=== PATIENT | female | born 1975 ===

== ENCOUNTER 2016-08-08 09:44 | Day surgery (SDC) | payer BC ==
[2016-07-22 09:02] VITALS: BMI 33.0
[2016-08-08] MEDS ORDERED: Propofol 10 mg/ml Inj (20 ML) ONE (10:55)
[2016-08-08] MEDS ORDERED: Lidocaine 1% Inj (20ml) ONE (11:25)
[2016-08-10 15:29] VITALS: O2SAT 98
[2016-08-10 15:33] VITALS: BP 111/68; PULSE 65; RESP 16; TEMP 97.4
== END 2016-08-08 12:42 | disposition home or self-care (01) ==
LOC: ENDO 09:44
PROVIDERS: ATTEND Internal Medicine
DX: K29.70 Gastritis, unspecified, without bleeding (principal); M32.9 Systemic lupus erythematosus, unspecified; I10 Essential (primary) hypertension; K57.90 Diverticulosis of intestine, part unspecified, without perforation or abscess without bleeding; M79.7 Fibromyalgia; R10.9 Unspecified abdominal pain; K59.00 Constipation, unspecified; Z86.19 Personal history of other infectious and parasitic diseases
CPT/HCPCS: 43235; J2704; J3010; J7040

== ENCOUNTER 2017-06-10 17:12 | Emergency (ER) | payer BC ==
[2017-06-10 17:21] VITALS: BMI 32.4
--- NOTE | 2017-06-10 17:46 | ED PDOC ---
Arrival/HPI - General Chief Complaint: Flu-like Symptoms Time Seen by Provider: 06/10/17 17:46 Historian: Patient - History of Present Illness Narrative History of Present Illness (Text): 06/10/17 17:46 This 41 yo female with pmh htn, asthma, migraines, presents to this Emergency department complaining of sore throat, nasal congestion, chill, bodyache x 2 weeks. patient stated symptoms has worsen since last night. Patient denies sob , cp, wheezing, abdominal pain, dizziness, urinary symptoms, or abnormal gait. PERC negative for PE Time/Duration: Other (see hpi) Context: Home Past Medical History - Provider Review Nursing Documentation Reviewed: Yes - Infectious Disease Hx of Infectious Diseases: None - Cardiac Hx Hypertension: Yes Hx Pacemaker: No - Pulmonary Hx Respiratory Disorders: Yes Hx Asthma: Yes Hx Pneumonia: Yes (2010) - Neurological Hx Paralysis: No - HEENT Hx HEENT Disorder: Yes () - Renal Hx Renal Disorder: No - Endocrine/Metabolic Hx Systemic Lupus Erythematosus: Yes (IN REMISSION) - Hematological/Oncological Hx Blood Transfusions: No Hx Blood Transfusion Reaction: No - Integumentary Hx Dermatological Disorder: No - Musculoskeletal/Rheumatological Hx Musculoskeletal Disorders: Yes (FIBROMYALGIA) - Gastrointestinal Hx Gastrointestinal Disorders: Yes Hx Diverticulitis: Yes Hx Gastroesophageal Reflux: Yes - Genitourinary/Gynecological Hx Reproductive Disorders: Yes (PELVIC PAIN/FIBROIDS HPV) Hx Urinary Tract Infection: Yes (LONG AGO) - Psychiatric Hx Emotional Abuse: No Hx Physical Abuse: No Hx Substance Use: No - Surgical History Hx Hysterectomy: Yes (2015) - Anesthesia Hx Anesthesia Reactions: Yes (NAUSEA / VOMITING ) Hx Malignant Hyperthermia: No - Suicidal Assessment Feels Threatened In Home Enviroment: No Family/Social History - Physician Review Nursing Documentation Reviewed: Yes Family/Social History: Other (noncontributory) Smoking Status: Never Smoked Hx Alcohol Use: No Hx Substance Use: No Allergies/Home Meds Allergies/Adverse Reactions: Allergies No Known Allergies Allergy (Verified 07/17/15 08:47) Home Medications: Home Meds Medication Instructions Recorded Confirmed Montelukast [Singulair] 1 tab PO HS 07/17/15 06/10/17 Valsartan/Hydrochlorothiazide 1 tab PO QPM 07/17/15 06/10/17 [Valsartan-Hctz 80-12.5 mg Tab] Review of Systems - Review of Systems Constitutional: Normal. absent: Fatigue, Weight Change, Fevers Eyes: Normal ENT: Sore Throat Respiratory: Cough. absent: SOB, Sputum, Wheezing Cardiovascular: Normal. absent: Chest Pain, Palpitations Gastrointestinal: Normal. absent: Abdominal Pain, Nausea, Vomiting Genitourinary Female: Normal. absent: Dysuria, Frequency, Hematuria Musculoskeletal: Normal, Myalgias Skin: Normal. absent: Rash Neurological: Normal Endocrine: Normal Hemo/Lymphatic: Normal Psychiatric: Normal Physical Exam Vital Signs Temp Pulse Resp BP Pulse Ox 06/10/17 17:13 98.5 F 97 H 20 117/76 97 Temperature: Afebrile Blood Pressure: Normal Pulse: Regular Respiratory Rate: Normal Appearance: Positive for: Well-Appearing, Non-Toxic, Comfortable Pain Distress: None Mental Status: Positive for: Alert and Oriented X 3 - Systems Exam Head: Present: Atraumatic, Normocephalic Pupils: Present: PERRL Extroacular Muscles: Present: EOMI Conjunctiva: Present: Normal Mouth: Present: Moist Mucous Membranes Neck: Present: Normal Range of Motion Respiratory/Chest: Present: Clear to Auscultation, Good Air Exchange. No: Respiratory Distress, Accessory Muscle Use, Wheezes, Retracting, Rhonchi, Tachypneic Cardiovascular: Present: Regular Rate and Rhythm, Normal S1, S2. No: Murmurs Abdomen: Present: Normal Bowel Sounds. No: Tenderness, Distention, Peritoneal Signs Back: Present: Normal Inspection Upper Extremity: Present: Normal Inspection. No: Cyanosis, Edema Lower Extremity: Present: Normal Inspection. No: Edema Neurological: Present: GCS=15, CN II-XII Intact, Speech Normal, Motor Func Grossly Intact, Normal Sensory Function, Normal Cerebellar Funct, Gait Normal Skin: Present: Warm, Dry, Normal Color. No: Rashes Psychiatric: Present: Alert, Oriented x 3, Normal Insight, Normal Concentration Medical Decision Making ED Course and Treatment: 06/10/17 19:51 Re-evaluation. Patient feels better. Discussed results and plan with patient who expresses understanding. All questions answered and there is agreement with the plan to discharge home with instructions. Patient stable for discharge. Return if symptoms persist or worsen Re-evaluation Time: 19:52 Reassessment Condition: Re-examined, Improved - Lab Interpretations Lab Results: Lab Results 06/10/17 18:08: Urine Color Yellow, Urine Appearance Clear, Urine pH 6.0, Ur Specific [place] 1.010, Urine Protein Negative, Urine Glucose (UA) Negative, Urine Ketones Negative, Urine Blood Trace-intact H, Urine Nitrate Negative, Urine Bilirubin Negative, Urine Urobilinogen 0.2, Ur Leukocyte Esterase Negative , Urine RBC 2 - 5, Urine WBC 0 - 2, Ur Epithelial Cells 6 - 8, Amorphous Sediment Small, Urine Bacteria Many, Urine Other Uyeast 06/10/17 18:08: Influenza Typ A,B (EIA) Negative for flu a/b I have reviewed the lab results: Yes (Influenza was negative) - RAD Interpretation Narrative RAD Interpretations (Text): 06/10/17 19:52 Chest x-rays: NAD Radiology Orders: 06/10/17 18:00 CHEST TWO VIEWS (PA/LAT) [RAD] Stat - Medication Orders Current Medication Orders: Discontinued Medications Acetaminophen (Tylenol 325mg Tab) 975 mg PO STAT STA Stop: 06/10/17 18:02 Last Admin: 06/10/17 18:22 Dose: 975 mg MAR Pain/Vitals Document 06/10/17 18:22 GMI (Rec: 06/10/17 18:23 GMI [id number] Pain Reassessment Is This A Pain ReAssessment? Yes Sleep Is patient sleeping during reassessment? No Presence of Pain Presence of Pain Yes Location Pain Behavior Moaning Facial Grimacing Albuterol/Ipratropium (Duoneb 3 Mg/0.5 Mg (3 Ml) Ud) 3 ml IH STAT STA Stop: 06/10/17 18:02 Last Admin: 06/10/17 18:23 Dose: 3 ml Promethazine HCl/Codeine (Phenergan/Codeine Oral Syrup) 5 ml PO STAT STA Stop: 06/10/17 18:02 Last Admin: 06/10/17 18:23 Dose: 5 ml Disposition/Present on Arrival - Present on Arrival Any Indicators Present on Arrival: No History of DVT/PE: No History of Uncontrolled Diabetes: No Urinary Catheter: No History of Decub. Ulcer: No History Surgical Site Infection Following: None - Disposition Have Diagnosis and Disposition been Completed?: Yes Diagnosis: Upper respiratory infection Disposition: HOME/ ROUTINE Disposition Time: 19:54 Patient Plan: Discharge Patient Problems: Current Active Problems Problem Status Onset Upper respiratory infection Acute Condition: GOOD Discharge Instructions (ExitCare): Upper Respiratory Infection (ED) Additional Instructions: Call private doctor for follow up visit in 1-2 days. Take medication as instructed. Return to emergency if symptoms worsen. Prescriptions: Albuterol HFA [Ventolin HFA 90 mcg/actuation (8 g)] 2 puff IH [id number] PRN #120 puff PRN Reason: Wheezing Promethazine/Codeine [Codeine/Promethazine 10 MG/5 Ml-6.25 MG/5 Ml] 5 ml PO Q4H PRN #120 ml PRN Reason: Cough And Congestion Referrals: Greyson Yang MD [Family Provider] - Follow up with primary Forms: [facility] (Indonesian), WORK NOTE
[2017-06-10] MEDS ORDERED: Albuterol-Ipratrop 3 mg / 0.5 (3 ml) UD IH STA (18:01)
[2017-06-10] MEDS ORDERED: Promethazine/Cod 6.25mg-10mg/5ml Syr UD PO STA (18:01)
[2017-06-10 18:41] LABS: URINE BILIRUBIN NEGATIVE (NEGATIVE); URINE BLOOD TRACE-INTACT (NEGATIVE); URINE GLUCOSE (UA) NEGATIVE (NEGATIVE); URINE LEUKOCYTE ESTERASE NEGATIVE Leu/uL (NEGATIVE); URINE NITRATE NEGATIVE (NEGATIVE); URINE PROTEIN NEGATIVE mg/dL (<30 mg/dL); URINE UROBILINOGEN 0.2 E.U./dL (<1 E.U./dL)
[2017-06-10 18:51] LABS: URINE APPEARANCE CLEAR (CLEAR); URINE COLOR YELLOW (YELLOW)
[2017-06-10 19:05] LABS: URINE AMORPHOUS SEDIMENT SMALL; URINE BACTERIA MANY (NEG); URINE WBC 0 - 2 /hpf (0-6)
[2017-06-10 19:56] VITALS: BP 120/72; PULSE 75; RESP 16; TEMP 97.6; O2SAT 100
== END 2017-06-10 20:40 | disposition home or self-care (01) ==
LOC: ED 17:12
DX: J06.9 Acute upper respiratory infection, unspecified (principal)

== ENCOUNTER 2018-03-01 11:44 | Inpatient (IN) | payer BC ==
[2018-03-01 11:48] VITALS: BMI 32.8
[2018-03-01] MEDS ORDERED: Sodium Chloride 0.9% 1,000 ML IV STA (12:05)
--- NOTE | 2018-03-01 12:06 | ED PDOC ---
Arrival/HPI - General Chief Complaint: Abdominal Pain Time Seen by Provider: 03/01/18 11:45 Historian: Patient - History of Present Illness Narrative History of Present Illness (Text): 03/01/18 12:06 42 year old female with a past medical history of lupus, asthma, fibromyalgia, HTN, Diverticulitis and a past surgical history of Hysterectomy (2015), who presents to the Emergency Department with suprapubic abdominal pain since Monday. Pt states she came to the Emergency room on Monday and was diagnosed with a Bladder Infection, discharged home with abx. Pt states she followed up wit her PMD on Monday who changed her medications. Pt reports worsening symptoms since Monday associated with subjective fever and 2 episodes of diarrhea, prompting her to present to the Emergency Department today for revaluation. 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 Patient denies any chills, nausea, vomiting, hematochezia, chest pain, shortness of breath, cough, headache, dizziness, neck pain, back pain, or any other complaints. PMD: Dr. Greyson Yang Time/Duration: < week Symptom Onset: Gradual Symptom Course: Worsening Quality: Aching Activities at Onset: Light Context: Home Past Medical History - Provider Review Nursing Documentation Reviewed: Yes - Infectious Disease Hx of Infectious Diseases: None - Cardiac Hx Hypertension: Yes Hx Pacemaker: No - Pulmonary Hx Respiratory Disorders: Yes Hx Asthma: Yes Hx Pneumonia: Yes (2010) - Neurological Hx Paralysis: No - HEENT Hx HEENT Disorder: Yes (GLASSES) - Renal Hx Renal Disorder: No - Endocrine/Metabolic Hx Systemic Lupus Erythematosus: Yes (IN REMISSION) - Hematological/Oncological Hx Blood Transfusions: No Hx Blood Transfusion Reaction: No - Integumentary Hx Dermatological Disorder: No - Musculoskeletal/Rheumatological Hx Musculoskeletal Disorders: Yes (FIBROMYALGIA) - Gastrointestinal Hx Gastrointestinal Disorders: Yes Hx Diverticulitis: Yes Hx Gastroesophageal Reflux: Yes - Genitourinary/Gynecological Hx Reproductive Disorders: Yes (PELVIC PAIN/FIBROIDS HPV) Hx Urinary Tract Infection: Yes (LONG AGO) - Psychiatric Hx Emotional Abuse: No Hx Physical Abuse: No Hx Substance Use: No - Surgical History Hx Hysterectomy: Yes (2015) - Anesthesia Hx Anesthesia Reactions: Yes (NAUSEA / VOMITING ) Hx Malignant Hyperthermia: No - Suicidal Assessment Feels Threatened In Home Enviroment: No Family/Social History - Physician Review Nursing Documentation Reviewed: Yes Family/Social History: Unknown Family HX Smoking Status: Never Smoked Hx Alcohol Use: No Hx Substance Use: No Allergies/Home Meds Allergies/Adverse Reactions: Allergies No Known Allergies Allergy (Verified 03/01/18 11:48) Home Medications: Home Meds Medication Instructions Recorded Confirmed Ciprofloxacin [Cipro] 500 mg PO BID 03/01/18 03/01/18 Metoprolol Succinate [Toprol Xl] 50 mg PO DAILY 03/01/18 03/01/18 RX: Dicyclomine [Bentyl] 10 mg PO QID 03/01/18 03/01/18 RX: Metronidazole 500 mg PO TID 03/01/18 03/01/18 RX: traMADol [Ultram] 50 mg PO Q6 03/01/18 03/01/18 Review of Systems - Physician Review All systems were reviewed & negative as marked: Yes - Review of Systems Constitutional: Fevers Respiratory: absent: SOB, Cough Cardiovascular: absent: Chest Pain Gastrointestinal: Abdominal Pain, Diarrhea. absent: Nausea, Vomiting, Hematochezia Musculoskeletal: absent: Back Pain, Neck Pain Neurological: absent: Headache, Dizziness Physical Exam Vital Signs Reviewed: Yes Vital Signs Temp Pulse Resp BP Pulse Ox 03/01/18 11:53 98.1 F 77 18 119/80 98 Temperature: Afebrile Blood Pressure: Normal Pulse: Regular Respiratory Rate: Normal Appearance: Positive for: Well-Appearing, Non-Toxic, Comfortable Pain Distress: None Mental Status: Positive for: Alert and Oriented X 3 - Systems Exam Head: Present: Atraumatic, Normocephalic Pupils: Present: PERRL Extroacular Muscles: Present: EOMI Conjunctiva: Present: Normal Neck: Present: Normal Range of Motion Respiratory/Chest: Present: Clear to Auscultation, Good Air Exchange. No: Respiratory Distress, Accessory Muscle Use Cardiovascular: Present: Regular Rate and Rhythm, Normal S1, S2. No: Murmurs Abdomen: Present: Tenderness (suprapubic tenderness). No: Distention, Peritoneal Signs, Rebound, Guarding Back: Present: Normal Inspection Upper Extremity: Present: Normal Inspection. No: Cyanosis, Edema Lower Extremity: Present: Normal Inspection. No: Edema Neurological: Present: GCS=15, CN II-XII Intact, Speech Normal Skin: Present: Warm, Dry, Normal Color. No: Rashes Psychiatric: Present: Alert, Oriented x 3, Normal Insight, Normal Concentration Medical Decision Making ED Course and Treatment: 03/01/18 12:27 Impression: 42 year old female who presents to the Ed with suprapubic abdominal pain, subjective fever, and diarrhea. Plan: -- labs -- IV fluids -- Tylenol -- Urinalysis -- Reassess and disposition Prior Visits: Notes and results from previous visits were reviewed. Progress Notes: 03/01/18 14:59 CT of abdomen and pelvis reviewed by radiologist, shows: FINDINGS: LOWER THORAX: Unremarkable. LIVER: Unremarkable. No gross lesion or ductal dilatation. GALLBLADDER AND BILE DUCTS: Unremarkable. PANCREAS: Unremarkable. No gross lesion or ductal dilatation. SPLEEN: Unremarkable. ADRENALS: Unremarkable. No mass. KIDNEYS AND URETERS: Unremarkable. No hydronephrosis. No solid mass. VASCULATURE: Unremarkable. No aortic aneurysm. No atherosclerotic calcification or mural plaque present. BOWEL: Unremarkable. No obstruction. No gross mural thickening. APPENDIX: Normal appendix. PERITONEUM: Unremarkable. No free fluid. No free air. LYMPH NODES: Unremarkable. No enlarged lymph nodes. BLADDER: Unremarkable. REPRODUCTIVE: Cystic pelvic mass left midline well-circumscribed measuring 4 x 4.3 x 4.4 cm. A clear plane separates the mass from the bladder. The mass displays contiguity with the sigmoid colon. BONES: OTHER FINDINGS: IMPRESSION: Cystic pelvic mass likely adnexal in origin. Alternatively this could be related to the sigmoid colon and represent drainable collection/abscess. Pelvic ultrasound may assist in delineating the origin. Despite the fact that there is a history of hysterectomy, no history of oophorectomy provided. 03/01/18 15:54 PMD, Dr. Penaloza, evaluated patient at bed side. Requests pt admission and OB and GI on consult. 03/01/18 15:57 Transvaginal US was reviewed by radiologist and shows: FINDINGS: UTERUS: Prior hysterectomy. RIGHT OVARY: Not visible. LEFT OVARY: No normal adnexal tissue is identified. Left adnexal mass 3.8 x 3.7 x 6.5 cm with solid and cystic components. There is rim enhancement. FREE FLUID: No significant free fluid noted. OTHER FINDINGS: None. IMPRESSION: Complex primarily solid mass in the left hemipelvis-left adnexa. This corresponds findings on recent CT scan. This does not appear to represent a complex cyst or abscess. The findings are nonspecific. Pelvic MRI advised for further evaluation 03/01/18 17:42 PMD, Dr. Penaloza, evaluated patient at bed side. Requests pt admission and OB and GI on consult. - RAD Interpretation Route Returner: Radiologist - Ignacia Statement The provider has reviewed the documentation as recorded by the Ignacia billings [facility] All medical record entries made by the Ojibtyler were at my direction and personally dictated by me. I have reviewed the chart and agree that the record accurately reflects my personal performance of the history, physical exam, medical decision making, and the department course for this patient. I have also personally directed, reviewed, and agree with the discharge instructions and disposition. Disposition/Present on Arrival - Present on Arrival Any Indicators Present on Arrival: No History of DVT/PE: No History of Uncontrolled Diabetes: No Urinary Catheter: No History of Decub. Ulcer: No History Surgical Site Infection Following: None - Disposition Have Diagnosis and Disposition been Completed?: Yes Diagnosis: Abdominal pain, Pelvic mass Disposition: HOSPITALIZED Disposition Time: 05:00 Condition: STABLE
[2018-03-01 12:33] LABS: BASO # 0.02 K/mm3 (0.0-2.0); BASO % 0.3 % (0.0-3.0); EOS # 0.1 (0.0-0.7); EOS % 1.7 % (1.5-5.0); GRAN # 5.1 (1.4-6.5); GRAN % 68.3 % (50.0-68.0); HEMOGLOBIN 12.9 g/dL (12.0-16.0); LYMPH # 1.7 (1.2-3.4); LYMPH % 22.3 % (22.0-35.0); MEAN CELL VOLUME 90.5 fl (80.0-105.0); MEAN CORPUSCULAR HGB CONC 33.2 g/dl (31.0-37.0); MONO # 0.6 (0.1-0.6); MONO % 7.4 % (1.0-6.0); RBC 4.3 10^6/uL (3.5-6.1); RED CELL DISTRIBUTION WIDTH 14.3 % (11.5-14.5); WHITE BLOOD COUNT 7.5 10^3/ul (4.5-11.0)
[2018-03-01 12:44] LABS: URINE BILIRUBIN NEGATIVE (NEGATIVE); URINE BLOOD TRACE-LYSED (NEGATIVE); URINE GLUCOSE (UA) NEGATIVE (NEGATIVE); URINE LEUKOCYTE ESTERASE NEGATIVE Leu/uL (NEGATIVE); URINE PROTEIN NEGATIVE mg/dL (<30 mg/dL); URINE UROBILINOGEN 0.2 E.U./dL (<1 E.U./dL)
[2018-03-01 12:46] LABS: HCG,QUALITATIVE URINE NEGATIVE (NEGATIVE); URINE APPEARANCE CLEAR (CLEAR); URINE COLOR YELLOW (YELLOW)
[2018-03-01 12:48] LABS: INR 1.03; PARTIAL THROMBOPLASTIN TIME 31.2 Seconds (25.1-36.5); PROTHROMBIN TIME 11.8 SECONDS (9.4-12.5)
[2018-03-01 12:54] LABS: URINE BACTERIA FEW (NEG); URINE WBC 0 - 2 /hpf (0-6)
[2018-03-01 13:30] LABS: ALB/GLOB RATIO 1.2 (1.1-1.8); ALBUMIN 4.1 g/dL (3.0-4.8); ALT/SGPT 23 U/L (7-56); AST/SGOT 17 U/L (14-36); BLOOD UREA NITROGEN 15 mg/dL (7-21); CALCIUM 8.7 mg/dL (8.4-10.5); GFR NON-AFRICAN AMERICAN > 60; LIPASE 90 U/L (23-300)
--- NOTE | 2018-03-01 14:32 | CT ---
Date of service: 03/01/2018 PROCEDURE: CT Abdomen and Pelvis with contrast HISTORY: Lower abdominal pain. Relevant surgical history: Prior hysterectomy COMPARISON: None. TECHNIQUE: Intravenous contrast dose: Radiation dose: Total exam DLP = inf_radiation_dlp mGy-cm. This CT exam was performed using one or more of the following dose reduction techniques: Automated exposure control, adjustment of the mA and/or kV according to patient size, and/or use of iterative reconstruction technique. FINDINGS: LOWER THORAX: Unremarkable. LIVER: Unremarkable. No gross lesion or ductal dilatation. GALLBLADDER AND BILE DUCTS: Unremarkable. PANCREAS: Unremarkable. No gross lesion or ductal dilatation. SPLEEN: Unremarkable. ADRENALS: Unremarkable. No mass. KIDNEYS AND URETERS: Unremarkable. No hydronephrosis. No solid mass. VASCULATURE: Unremarkable. No aortic aneurysm. No atherosclerotic calcification or mural plaque present. BOWEL: Unremarkable. No obstruction. No gross mural thickening. APPENDIX: Normal appendix. PERITONEUM: Unremarkable. No free fluid. No free air. LYMPH NODES: Unremarkable. No enlarged lymph nodes. BLADDER: Unremarkable. REPRODUCTIVE: Cystic pelvic mass left midline well-circumscribed measuring 4 x 4.3 x 4.4 cm. A clear plane separates the mass from the bladder. The mass displays contiguity with the sigmoid colon. BONES: OTHER FINDINGS: IMPRESSION: Cystic pelvic mass likely adnexal in origin. Alternatively this could be related to the sigmoid colon and represent drainable collection/abscess. Pelvic ultrasound may assist in delineating the origin. Despite the fact that there is a history of hysterectomy, no history of oophorectomy provided.
--- NOTE | 2018-03-01 15:52 | US ---
Date of service: 03/01/2018 HISTORY: pelvic pain/mass COMPARISON: 03/01/2018 CT abdomen and pelvis TECHNIQUE: Prior hysterectomy. FINDINGS: UTERUS: Prior hysterectomy. RIGHT OVARY: Not visible. LEFT OVARY: No normal adnexal tissue is identified. Left adnexal mass 3.8 x 3.7 x 6.5 cm with solid and cystic components. There is rim enhancement. FREE FLUID: No significant free fluid noted. OTHER FINDINGS: None. IMPRESSION: Complex primarily solid mass in the left hemipelvis-left adnexa. This corresponds findings on recent CT scan. This does not appear to represent a complex cyst or abscess. The findings are nonspecific. Pelvic MRI advised for further evaluation
[2018-03-01] MEDS ORDERED: Influenza Vaccine 60 mcg/0.5 mL SYR (4YR UP) IM ONE (20:35)
[2018-03-01] MEDS ORDERED: Pneumococcal 23-Valent Vaccine IM ONE (20:35)
[2018-03-01] MEDS: HYDROmorphone 0.5 mg/0.5 ml ISec IVP PRN (21:33)
[2018-03-02] MEDS: HYDROmorphone 0.5 mg/0.5 ml ISec IVP PRN ×2 (08:04→22:24)
--- NOTE | 2018-03-02 10:03 | CP.PCM.CON ---
<Handy Morfin - Last Filed: 03/02/18 13:48> History of Present Illness - History of Present Illness History of Present Illness: Justin Morfin IM Resident - GI Consult Note Consulted Reason: Intractable Abdominal Pain HPI: 42 year old female with past medical history of HTN, Asthma, Lupus, uterine fibroids, hx HPV, Fibromyalgia, diverticulosis who presented to [facility] complaining of lower abdominal pain. Patient reports that last week starting Monday (02/23/18) she began experiencing minimal pain in her pelvic area and pain with urination. She described the pains onset with abdominal pressure from using the restroom. As she would bare down to pee or defecate she felt increase in her pain. She indicates that the pain progressed further until Monday when she went to [facility] for evaluation. She states she was diagnosed with a bladder infection and given antibiotics. She did not receive imaging at that time. She was given antibiotics and instructed to follow up with her primary care. She continued to experience discomfort and decided to visit her primary care doctor this past Monday02/27/18 and had her medications changed to Ciprofloxacin, Flagyl and Tramadol. Patient had a urinalysis conducted and was told she did not have cystitis. Patient indicates subjective fever, diarrhea and excruciating throbbing pain rated 10/10 in her lower abdomen and pelvic region that prompted her to be evaluated in the ED. Patient is unable to report Tmax as fevers were subjective. She states the diarrhea was loose brown stool without mucous or blood. She stated the pain was worsened with movement. At time of interview patient indicates pain is controlled with IV medication. Patient denies Patient reports previous EGD(x2) and colonoscopy(x5) work up with most recent being in 2017. She reports history of ulcers in her stomach and possibly polyps from her colon. Abdominal/Pelvis CT(03/01/18): Cystic pelvic mass likely adnexal in origin. Alternatively this could be related to the sigmoid colon and represent drainable collection/abscess. Pelvic ultrasound may assist in delineating the origin. Despite the fact that there is a history of hysterectomy, no history of oophorectomy provided Transvaginal US(03/01/18): Complex primarily solid mass in the left hemipelvis- left adnexa. This does not appear to represent a complex cyst or abscess. Most Recent Endoscopic evaluation EGD(08/08/16): Normal esophagus, minimal gastritis, no evidence of PUD, normal duodenal bulb and 2nd part of the duodenum Colonoscopy(05/30/2016): Internal and external hemorrhoids, normal mucosa in the entire examined colon PMH: As above PSH: Tubal ligation 2010, Partial hysterectomy 2015 SOCHX: Denies Tobacco, ETOH, ID FMH: Denies hx of GI cancers in family Mother: Thyroid problems Father: HTN, DM2, CAD Sister: Thyroid Cancer, Cervical cancer, Breast cancer ALL: NKDA MEDS: Ciprofloxacin, Metronidazole, tramadol, Bentyl, Toprol XL PMD: Dr. Greyson Yang Past Patient History - Infectious Disease Hx of Infectious Diseases: None - Past Medical History & Family History Past Medical History?: Yes - Past Social History Smoking Status: Never Smoked - CARDIAC Hx Cardiac Disorders: Yes Hx Hypertension: Yes Hx Pacemaker: No - PULMONARY Hx Respiratory Disorders: Yes Hx Asthma: Yes Hx Pneumonia: Yes (2010) - NEUROLOGICAL Hx Neurological Disorder: Yes Hx Migraine: Yes - HEENT Hx HEENT Problems: Yes (GLASSES) - RENAL Hx Chronic Kidney Disease: No - ENDOCRINE/METABOLIC Hx Systemic Lupus Erythematosus: Yes (IN REMISSION) - HEMATOLOGICAL/ONCOLOGICAL Hx Blood Disorders: No - INTEGUMENTARY Hx Dermatological Problems: No - MUSCULOSKELETAL/RHEUMATOLOGICAL Hx Musculoskeletal Disorders: Yes (FIBROMYALGIA) Hx Falls: No - GASTROINTESTINAL Hx Gastrointestinal Disorders: Yes (POLYPS) Hx Diverticulitis: Yes Hx Gastroesophageal Reflux: Yes - GENITOURINARY/GYNECOLOGICAL Hx Genitourinary Disorders: Yes (FIBROID UTERUS,HYSTERECTOMY,TUBAL LIGATION) Hx Urinary Tract Infection: Yes (LONG AGO) Other/Comment: L OVARIAN CYST 03-01-18 - PSYCHIATRIC Hx Emotional Abuse: No Hx Physical Abuse: No Hx Substance Use: No - SURGICAL HISTORY Hx Surgeries: Yes (TUBAL LIGATION,D/C) Hx Hysterectomy: Yes (2015) - ANESTHESIA Hx Anesthesia Reactions: Yes (NAUSEA / VOMITING ) Hx Malignant Hyperthermia: No Meds Allergies/Adverse Reactions: Allergies Allergy/AdvReac Type Severity Reaction Status Date / Time No Known Allergies Allergy Verified 03/01/18 18:00 - Medications Medications: Current Medications Hydromorphone HCl (Dilaudid) 0.5 mg IVP Q6H PRN PRN Reason: Pain, moderate (4-7) Last Admin: 03/02/18 08:04 Dose: 0.5 mg Ondansetron HCl (Zofran Inj) 4 mg IVP Q6H PRN PRN Reason: Nausea/Vomiting Last Admin: 03/02/18 08:54 Dose: 4 mg Results - Vital Signs Recent Vital Signs: Last Vital Signs Temp 97.8 F 03/02/18 06:00 Pulse 69 03/02/18 06:00 Resp 18 03/02/18 06:00 BP 135/85 03/02/18 06:00 Pulse Ox 98 03/02/18 06:00 - Labs Result Diagrams: 03/01/18 12:20 03/01/18 13:08 Labs: Laboratory Results - last 24 hr 03/01/18 03/01/18 03/01/18 12:20 12:20 12:20 WBC 7.5 RBC 4.30 Hgb 12.9 Hct 38.9 MCV 90.5 MCH 30.0 MCHC 33.2 RDW 14.3 Plt Count 380 MPV 9.0 Gran % 68.3 H Lymph % (Auto) 22.3 Spink % (Auto) 7.4 H Eos % (Auto) 1.7 Baso % (Auto) 0.3 Gran # 5.10 Lymph # (Auto) 1.7 Spink # (Auto) 0.6 Eos # (Auto) 0.1 Baso # (Auto) 0.02 PT 11.8 INR 1.03 APTT 31.2 Sodium Potassium Chloride Carbon Dioxide Anion Gap BUN Creatinine Est GFR ( Amer) Est GFR (Non-Af Amer) Random Glucose Calcium Magnesium Total Bilirubin AST ALT Alkaline Phosphatase Total Protein Albumin Globulin Albumin/Globulin Ratio Lipase Urine Color Yellow Urine Appearance Clear Urine pH 6.0 Ur Specific [place] 1.015 Urine Protein Negative Urine Glucose (UA) Negative Urine Ketones Negative Urine Blood Trace-lysed H Urine Nitrate Negative Urine Bilirubin Negative Urine Urobilinogen 0.2 Ur Leukocyte Esterase Negative Urine RBC 1 - 3 Urine WBC 0 - 2 Ur Epithelial Cells 4 - 5 Urine Bacteria Few Urine HCG, Qual Negative 03/01/18 13:08 WBC RBC Hgb Hct MCV MCH MCHC RDW Plt Count MPV Gran % Lymph % (Auto) [place] % (Auto) Eos % (Auto) Baso % (Auto) Gran # Lymph # (Auto) [place] # (Auto) Eos # (Auto) Baso # (Auto) PT INR APTT Sodium 137 Potassium 4.2 Chloride 104 Carbon Dioxide 26 Anion Gap 11 BUN 15 Creatinine 0.7 Est GFR ( Amer) > 60 Est GFR (Non-Af Amer) > 60 Random Glucose 83 Calcium 8.7 Magnesium 1.9 Total Bilirubin 0.4 AST 17 ALT 23 Alkaline Phosphatase 50 Total Protein 7.4 Albumin 4.1 Globulin 3.3 Albumin/Globulin Ratio 1.2 Lipase 90 Urine Color Urine Appearance Urine pH Ur Specific [place] Urine Protein Urine Glucose (UA) Urine Ketones Urine Blood Urine Nitrate Urine Bilirubin Urine Urobilinogen Ur Leukocyte Esterase Urine RBC Urine WBC Ur Epithelial Cells Urine Bacteria Urine HCG, Qual Assessment & Plan - Assessment and Plan (Free Text) Assessment: 42 year old female with past medical history of HTN, Asthma, Lupus, uterine fibroids, hx HPV, Fibromyalgia, who presented to [facility] complaining of lower abdominal pain. Patient underwent imaging showing solid mass of the left hemipelvis-left adnexa. Plan: Intractable abdominal pain Pelvic mass with relation to sigmoid colon vs adenexal origin Hx of diverticulosis SLE HTN Asthma - Pelvic mass likely left hemipelvis-left adnexa - Pain control as per primary - Abdominal/Pelvis CT(03/01/18): Cystic pelvic mass likely adnexal in origin. Alternatively this could be related to the sigmoid colon and represent drainable collection/abscess. Pelvic ultrasound may assist in delineating the origin. Despite the fact that there is a history of hysterectomy, no history of oophorectomy provided - Transvaginal US(03/01/18): Complex primarily solid mass in the left hemipelvis-left adnexa. This does not appear to represent a complex cyst or abscess - Previous EGD and Colonoscopy reports reviewed and appreciated - Gynecology consulted, follow up recommendations - Further recommendations per Dr. Cordova - Date & Time Date: 03/02/18 Time: 10:35 <Min Cordova V - Last Filed: 03/05/18 23:51> Meds - Medications Medications: Current Medications Hydromorphone HCl (Dilaudid) 0.5 mg IVP Q6H PRN PRN Reason: Pain, moderate (4-7) Last Admin: 03/03/18 12:33 Dose: 0.5 mg Ondansetron HCl (Zofran Inj) 4 mg IVP Q6H PRN PRN Reason: Nausea/Vomiting Last Admin: 10/20/18 12:32 Dose: 4 mg Polyethylene Glycol (Miralax) 17 gm PO BID ERICA Last Admin: 03/03/18 17:51 Dose: Not Given Results - Vital Signs Recent Vital Signs: Last Vital Signs Temp 97.8 F 03/03/18 14:00 Pulse 67 03/03/18 14:00 Resp 18 03/03/18 14:00 BP 123/66 03/03/18 14:00 Pulse Ox 94 L 03/03/18 14:00 - Labs Result Diagrams: 03/03/18 06:00 03/03/18 06:00 Labs: Laboratory Results - last 24 hr 03/03/18 03/03/18 03/03/18 06:00 06:00 06:00 WBC 7.3 RBC 4.20 Hgb 12.4 Hct 37.6 MCV 89.5 MCH 29.5 MCHC 33.0 RDW 14.2 Plt Count 368 MPV 9.3 Sodium 137 Potassium 4.0 Chloride 103 Carbon Dioxide 24 Anion Gap 13 BUN 17 Creatinine 0.7 Est GFR ( Amer) > 60 Est GFR (Non-Af Amer) > 60 Random Glucose 106 Calcium 8.8 Iron 63 TIBC 314 % Saturation 20 Triglycerides 149 Cholesterol 231 H LDL Cholesterol Direct 124 HDL Cholesterol 53 Vitamin B12 493 Folate 7.4 TSH 3rd Generation 03/03/18 06:00 WBC RBC Hgb Hct MCV MCH MCHC RDW Plt Count MPV Sodium Potassium Chloride Carbon Dioxide Anion Gap BUN Creatinine Est GFR ( Amer) Est GFR (Non-Af Amer) Random Glucose Calcium Iron TIBC % Saturation Triglycerides Cholesterol LDL Cholesterol Direct HDL Cholesterol Vitamin B12 Folate TSH 3rd Generation 2.35 Attending/Attestation - Attestation I have personally seen and examined this patient.: Yes I have fully participated in the care of the patient.: Yes I have reviewed all pertinent clinical information: Yes Notes (Text): This is an addendum to GI consult report dictated by the Development Engineer.The patient was seen and evaluated earlier. Medical records, lab studies, imagings were reviewed. Last 24 hours events reviewed. Agreed with the above treatment plan as outlined in Development Engineer 's notes with the addition of the following This patient was admitted with lower abdominal pain CT was reviewed On examination patient had tenderness in the lower abdomen mainly in the right lower quadrant Pelvis mass vs organized collection Would request top spotter evaluation and MRI Request for an MRI and top spotter evaluation Patient's previous GI workup was reviewed 03/03/18 21:53 03/05/18 23:48
[2018-03-03 06:47] LABS: HEMOGLOBIN 12.4 g/dL (12.0-16.0); MEAN CELL VOLUME 89.5 fl (80.0-105.0); MEAN CORPUSCULAR HEMOGLOBIN 29.5 pg (25.0-35.0); MEAN PLATELET VOLUME 9.3 fl (7.0-11.0); RBC 4.2 10^6/uL (3.5-6.1); RED CELL DISTRIBUTION WIDTH 14.2 % (11.5-14.5); WHITE BLOOD COUNT 7.3 10^3/ul (4.5-11.0)
[2018-03-03 06:58] LABS: BLOOD UREA NITROGEN 17 mg/dL (7-21); CALCIUM 8.8 mg/dL (8.4-10.5); GFR NON-AFRICAN AMERICAN > 60; HDL CHOLESTEROL 53 mg/dL (29-60)
[2018-03-03 06:59] LABS: IRON 63 ug/dL (45-180)
[2018-03-03 07:09] LABS: LDL CHOLESTEROL 124 mg/dL (0-129)
[2018-03-03 07:13] LABS: % IRON SATURATION 20 % (20-55); TOTAL IRON BINDING CAPACITY 314 ug/dL (265-497)
--- NOTE | 2018-03-03 12:28 | CP.PCM.PN ---
<Shashi Suazo - Last Filed: 03/03/18 12:22> Subjective - Date & Time of Evaluation Date of Evaluation: 03/03/18 Time of Evaluation: 12:22 - Subjective Subjective: No n/v last night. She is complaining of constipation. She still has some pelvic pain. Objective - Vital Signs/Intake and Output Vital Signs (last 24 hours): Temp Pulse Resp BP Pulse Ox 98.2 F 80 20 112/67 98 03/03/18 08:44 03/03/18 08:44 03/03/18 08:44 03/03/18 08:44 03/03/18 08:44 Intake and Output: 03/03/18 03/03/18 06:59 18:59 Intake Total 960 Output Total 0 Balance 960 - Medications Medications: Current Medications Hydromorphone HCl (Dilaudid) 0.5 mg IVP Q6H PRN PRN Reason: Pain, moderate (4-7) Last Admin: 03/02/18 22:24 Dose: 0.5 mg Ondansetron HCl (Zofran Inj) 4 mg IVP Q6H PRN PRN Reason: Nausea/Vomiting Last Admin: 03/02/18 22:24 Dose: 4 mg - Labs Labs: 03/03/18 06:00 03/03/18 06:00 PT 11.8 SECONDS (9.4-12.5) 03/01/18 12:20 INR 1.03 03/01/18 12:20 APTT 31.2 Seconds (25.1-36.5) 03/01/18 12:20 - Constitutional Appears: Non-toxic - Head Exam Head Exam: NORMAL INSPECTION - ENT Exam ENT Exam: Normal Exam - Respiratory Exam Respiratory Exam: Clear to Ausculation Bilateral, NORMAL BREATHING PATTERN - Cardiovascular Exam Cardiovascular Exam: REGULAR RHYTHM, +S1, +S2 - GI/Abdominal Exam GI & Abdominal Exam: Soft, Tenderness, Normal Bowel Sounds - Extremities Exam Extremities Exam: Normal Inspection - Neurological Exam Neurological Exam: Alert, Awake, Oriented x3 - Psychiatric Exam Psychiatric exam: Normal Affect, Normal Mood - Skin Skin Exam: Dry Assessment and Plan - Assessment and Plan (Free Text) Assessment: 42 year old female with past medical history of HTN, Asthma, Lupus, uterine fibroids, hx HPV, Fibromyalgia, who presented to [facility] complaining of lower abdominal pain. Patient underwent imaging showing solid mass of the left hemipelvis-left adnexa. Plan: Intractable abdominal pain Pelvic mass Hx of diverticulosis SLE HTN Asthma - Pelvic mass likely left hemipelvis-left adnexa - Pain control as per primary - Abdominal/Pelvis CT(03/01/18): Cystic pelvic mass likely adnexal in origin. Alternatively this could be related to the sigmoid colon and represent drainable collection/abscess. Pelvic ultrasound may assist in delineating the origin. Despite the fact that there is a history of hysterectomy, no history of oophorectomy provided - Transvaginal US(03/01/18): Complex primarily solid mass in the left hemipelvis-left adnexa. This does not appear to represent a complex cyst or abscess - Previous EGD and Colonoscopy 2017 reports reviewed and appreciated - Gynecology consulted, follow up recommendations - start bowel regimen - Further recommendations per Dr. Cordova <Min Cordova V - Last Filed: 03/05/18 23:53> Objective - Vital Signs/Intake and Output Vital Signs (last 24 hours): Temp Pulse Resp BP Pulse Ox 97.8 F 67 18 123/66 94 L 03/03/18 14:00 03/03/18 14:00 03/03/18 14:00 03/03/18 14:00 03/03/18 14:00 - Medications Medications: Current Medications Hydromorphone HCl (Dilaudid) 0.5 mg IVP Q6H PRN PRN Reason: Pain, moderate (4-7) Last Admin: 03/03/18 12:33 Dose: 0.5 mg Ondansetron HCl (Zofran Inj) 4 mg IVP Q6H PRN PRN Reason: Nausea/Vomiting Last Admin: 03/03/18 12:32 Dose: 4 mg Polyethylene Glycol (Miralax) 17 gm PO BID ERICA Last Admin: 03/03/18 17:51 Dose: Not Given - Labs Labs: 03/03/18 06:00 03/03/18 06:00 PT 11.8 SECONDS (9.4-12.5) 03/01/18 12:20 INR 1.03 03/01/18 12:20 APTT 31.2 Seconds (25.1-36.5) 03/01/18 12:20 Attending/Attestation - Attestation I have personally seen and examined this patient.: Yes I have fully participated in the care of the patient.: Yes I have reviewed all pertinent clinical information, including history, physical exam and plan: Yes Notes (Text): This is an addendum to GI progress report dictated by the GI Fellow.The patient was seen and examined earlier. Medical records, lab studies, imagings were reviewed. Last 24 hours events reviewed. Agreed with the above treatment plan as outlined in GI Fellow 's notes with the addition of the following Patient had an MRI done Awaiting for results Patient is also waiting for cathead operator evaluation On examination abdomen soft Mild tenderness present in the lower right quadrant Discussed with nursing staff and the patient's who was at bedside 03/03/18 21:53 03/05/18 23:51
[2018-03-03] MEDS: HYDROmorphone 0.5 mg/0.5 ml ISec IVP PRN ×2 (12:33→23:04)
--- NOTE | 2018-03-03 12:35 | HP ---
DATE OF EXAM: 03/01/2018 CHIEF COMPLAINT: The patient was seen and examined at the bedside on 03/01/2018 with a chief complaint of abdominal pain. HISTORY OF PRESENT ILLNESS: Ms. Lesa Umanzor is 42 years old female with past medical history of lupus, asthma, fibromyalgia, hypertension, diverticulitis, a past surgical history of hysterectomy in 2016 and came to the emergency department with suprapubic abdominal pain since Monday. The patient states that she came to the emergency room on Monday and was diagnosed with bladder infection, discharged home with antibiotics, then the patient has follow up with her MUSHROOM CUTTER. MUSHROOM CUTTER treated her, but still pain and then she went to her primary care physician who changed her medication. The patient reports worsening of symptoms since Monday associated with subjective fever and two episodes of diarrhea prompting her to the emergency room at [facility] for reevaluation. The patient reports annual visit with the floor finisher helper on Monday with no significant finding. The patient denies any chills, fever, vomiting, hematuria, hematochezia. No chest pain. No cough. No shortness of breath. No headache. No dizziness. PAST MEDICAL HISTORY: Hypertension, asthma, history of systemic lupus erythematosus, fibromyalgia, diverticulitis, gastroesophageal reflux disease, pelvic pain, fibroid, urinary tract infection, hysterectomy. FAMILY HISTORY: Father and mother, noncontributory. HABITS: Never smoked. No drugs. No ethanol. ALLERGIES: THE PATIENT IS NOT ALLERGIC WITH ANY MEDICATIONS. HOME MEDICATIONS: Ciprofloxacin, metoprolol, Bentyl, metronidazole, tramadol. REVIEW OF SYSTEMS: The patient was seen by me in the emergency room on 03/01/2018, still complaining about abdominal pain. No fever. No shortness of breath or cough. No chest pain but just had abdominal pain, diarrhea. No nausea, vomiting, hematuria, hematochezia. No back pain. No neck pain. No headache. No dizziness. PHYSICAL EXAMINATION: VITAL SIGNS: Temperature 98.1, pulse 77, respiratory rate 18, blood pressure 119/80, and pulse oximetry 98. HEENT: Head normocephalic, atraumatic. Eyes: PERRLA. Extraocular muscles intact. Conjunctivae clear. Nose patent. Mucous membrane moist. NECK: Supple. No carotid bruit. No JVD or thyromegaly. CHEST: Bilaterally symmetrical. CARDIOPULMONARY: Heart S1 and S2 positive. LUNGS: Clear to auscultation. ABDOMEN: Soft. Bowel sounds positive. No organomegaly. EXTREMITIES: No edema. No cyanosis. NEUROLOGIC: Patient is awake and alert. Moving all four extremities. No focal deficit. LABORATORY DATA: White blood cells 7.5, hemoglobin 12.9, hematocrit 38.9, platelets are 380. Sodium 137, potassium 4.2, BUN 15, creatinine 0.7. ASSESSMENT AND PLAN: Ms. Lesa Umanzor is 42 years old lady, has hematuria, came with intractable abdominal pain, failed outpatient treatment, was seen by floor finisher helper, primary care physician and seen by members of emergency room. Has history of lupus, asthma, fibromyalgia, hypertension, diverticulitis, hysterectomy. We admitted the patient for abdominal pain, pelvic mass. CAT scan of the abdomen and pelvis done. Transvaginal ultrasound done. Pelvic mass; it looks like related to sigmoid colon versus adnexa region, history of diverticulosis, asthma, hypertension. Pelvic mass likely felt hemipelvic left adnexa. Pain controlled. Previous esophagogastroduodenoscopy and colonoscopy reports reviewed and appreciated. Gynecology consult recommended. Appreciated Dr. Cordova's input. Repeat labs. We will follow up. Oralia Penaloza MD
[2018-03-03 14:54] LABS: FOLATE 7.4 ng/mL
--- NOTE | 2018-03-03 17:21 | PN ---
DATE: 03/02/2018 SUBJECTIVE: The patient was seen and examined on the bedside on 03/02/2018. No fever. No chills. No nausea, vomiting, or diarrhea. No hematuria or hematochezia, but still having abdominal pain and sometimes feeling nauseous. No headache. No dizziness. No hematuria or hematochezia. PHYSICAL EXAMINATION: VITAL SIGNS: Temperature 97.8, pulse 69, respiratory rate 18, blood pressure 135/85, pulse oximetry 95. HEENT: Head normocephalic, atraumatic. Eyes: PERRLA. Extraocular muscles intact. Conjunctivae clear. Nose patent. Mucous membrane moist. NECK: Supple. No carotid bruit. No JVD. No thyromegaly. CHEST: Bilaterally symmetrical. HEART: S1 and S2 positive. LUNGS: Clear to auscultation. ABDOMEN: Soft. Bowel sounds positive. No organomegaly. EXTREMITIES: No edema. No cyanosis. NEUROLOGICAL: The patient is awake and alert. Moving all 4 extremities. No focal deficits. LABORATORY DATA: White blood cells 7.5, hemoglobin 12.9, hematocrit 38.9, platelets 380. Sodium 137, potassium 4.2, BUN 15, creatinine 0.7, glucose 86. ASSESSMENT AND PLAN: Ms. Lesa Umanzor is a 42-year-old lady with past medical history of hypertension, asthma, lupus, uterine fibroid, history of human papillomavirus, fibromyalgia. Came complaining of lower abdominal pain. The patient underwent imaging showing a solid mass of the left hemipelvis, left adnexa. History of diverticulitis. Getting pain medication. Reviewed CAT scan. Reviewed transvaginal ultrasound. GI is on the case. Cooky Packer is on the case. We will continue present treatment. Repeat labs. We will follow up. Oralia Penaloza MD
[2018-03-03] MEDS: POLYETHYLENE GLYCOL 3350 17 GM/Dose PACKET PO SCH (17:51)
[2018-03-04] MEDS: POLYETHYLENE GLYCOL 3350 17 GM/Dose PACKET PO SCH ×2 (10:03→17:37)
--- NOTE | 2018-03-04 11:06 | CP.PCM.CON ---
History of Present Illness - History of Present Illness History of Present Illness: 42yo female with approx 1 wk h/o worsening pelvic and lower abdominal pain. In ED, patient found to have 6.5 x 3.8 x 3.7cm pelvic complex mass on ultrasound and CT. These reports state that origin of mass unclear. MRI done yesterday reports that mass appears to be ovarian. Pt reports having h/o diverticulitis with multiple colonoscopies. Pt also with h/o hysterectomy done in 2016. Pt reports that while at hospital, discomfort has persisted. Pt has required multiple doses of pain medication, last dose ~11 hrs ago. Pt denies any N/V, F/C, diarrhea. Pt does report chronic constipation with last BM approx 24-36hrs ago. I discussed options with patient including expectant management, discharge home and followup with her OBGYN doctor, or diagnostic laparoscopy and removal of pelvic mass. After discussion of options and review of her current symptoms, recommended diagnostic laparoscopy and evaluation, possible removal, of pelvic mass. Pt agrees with this plan. Discussed general information regarding surgery and all patient questions answered. Plan to transfer patient to [facility] (formerly [facility]) for surgery due to full OBGYN coverage with available surgical assistance and supportive care. I discussed this plan with patient and patient agrees with plan. Past Patient History - Infectious Disease Hx of Infectious Diseases: None - Past Medical History & Family History Past Medical History?: Yes - Past Social History Smoking Status: Never Smoked - CARDIAC Hx Hypertension: Yes - PULMONARY Hx Respiratory Disorders: Yes Hx Asthma: Yes Hx Pneumonia: Yes (2010) - NEUROLOGICAL Hx Neurological Disorder: Yes Hx Migraine: Yes - HEENT Hx HEENT Problems: Yes (GLASSES) - RENAL Hx Chronic Kidney Disease: No - ENDOCRINE/METABOLIC Hx Systemic Lupus Erythematosus: Yes (IN REMISSION) - HEMATOLOGICAL/ONCOLOGICAL Hx Blood Disorders: No - INTEGUMENTARY Hx Dermatological Problems: No - MUSCULOSKELETAL/RHEUMATOLOGICAL Hx Musculoskeletal Disorders: Yes (FIBROMYALGIA) Hx Falls: No - GASTROINTESTINAL Hx Gastrointestinal Disorders: Yes (POLYPS) Hx Diverticulitis: Yes Hx Gastroesophageal Reflux: Yes - GENITOURINARY/GYNECOLOGICAL Hx Genitourinary Disorders: Yes (FIBROID UTERUS,HYSTERECTOMY,TUBAL LIGATION) Hx Urinary Tract Infection: Yes (LONG AGO) Other/Comment: L OVARIAN CYST 03-01-18 - PSYCHIATRIC Hx Emotional Abuse: No Hx Physical Abuse: No Hx Substance Use: No - SURGICAL HISTORY Hx Surgeries: Yes (TUBAL LIGATION,D/C) Hx Hysterectomy: Yes (2015) - ANESTHESIA Hx Anesthesia Reactions: Yes (NAUSEA / VOMITING ) Hx Malignant Hyperthermia: No Meds Allergies/Adverse Reactions: Allergies Allergy/AdvReac Type Severity Reaction Status Date / Time No Known Allergies Allergy Verified 03/01/18 18:00 - Medications Medications: Current Medications Hydromorphone HCl (Dilaudid) 0.5 mg IVP Q6H PRN PRN Reason: Pain, moderate (4-7) Last Admin: 03/03/18 23:04 Dose: 0.5 mg Ondansetron HCl (Zofran Inj) 4 mg IVP Q6H PRN PRN Reason: Nausea/Vomiting Last Admin: 03/03/18 23:06 Dose: 4 mg Polyethylene Glycol (Miralax) 17 gm PO BID ERICA Last Admin: 03/04/18 10:03 Dose: Not Given Physical Exam - Constitutional Appears: Well - Head Exam Head Exam: ATRAUMATIC - Eye Exam Eye Exam: Normal appearance, PERRL - ENT Exam ENT Exam: Mucous Membranes Moist - GI/Abdominal Exam Additional comments: Soft, nondistended. No rebound or gaurding, but pt reports pain with deep palpation in lower abdomen. - Extremities Exam Extremities exam: Positive for: normal inspection. Negative for: calf tende rness Results - Vital Signs Recent Vital Signs: Last Vital Signs Temp 98.3 F 03/04/18 08:21 Pulse 75 03/04/18 08:21 Resp 20 03/04/18 08:21 BP 120/71 03/04/18 08:21 Pulse Ox 98 03/04/18 08:21 - Labs Result Diagrams: 03/03/18 06:00 03/03/18 06:00 Labs: Laboratory Results - last 24 hr 03/03/18 03/03/18 06:00 06:00 Hemoglobin A1c 6.1 Vitamin B12 493 Folate 7.4 - Imaging and Cardiology CT scan - pelvis Status: Report reviewed by me US - abdomen Status: Image reviewed by me, Report reviewed by me Additional comment: pelvic MRI - abdomen Status: Report reviewed by me Additional comment: pelvic Assessment & Plan - Assessment and Plan (Free Text) Assessment: Pelvic Mass, abdominal/pelvic pain Plan: As above. Plan to transfer pt to [facility] ([facility]) for further treatment. Discussed plan with [facility] staff to begin transfer. - Date & Time Date: 03/04/18 Time: 11:14
[2018-03-04] MEDS: HYDROmorphone 0.5 mg/0.5 ml ISec IVP PRN ×2 (11:44→18:11)
--- NOTE | 2018-03-04 12:06 | PN ---
DATE: 03/03/2018 SUBJECTIVE: The patient was seen and examined on the bedside on 03/03/2018, looking comfortable. This progress note is for 03/03/2018. The patient is still having pain, constipation. No nausea, vomiting. was sitting on the bedside. No headache. No dizziness. No chest pain. No palpitation. No fever. No chills. PHYSICAL EXAMINATION: VITAL SIGNS: Temperature 98.2, pulse 80, respiratory rate 20, blood pressure 112/67, pulse oximetry 98. HEENT: Head normocephalic, atraumatic. Eyes PERRLA. Extraocular muscles intact. Conjunctivae clear. Nose patent. Mucous membrane moist. NECK: Supple. No carotid bruit. No JVD. No thyromegaly. CHEST: Bilaterally symmetrical. HEART: S1 and S2 positive. LUNGS: Clear to auscultation. ABDOMEN: Soft. Bowel sounds positive. No organomegaly, but tender in the especially lower part. EXTREMITIES: No edema. No cyanosis. NEUROLOGICAL: The patient is awake and alert. Follows simple commands. MEDICATIONS: Dilaudid, Zofran. LABORATORY DATA: White blood cells 7.3, hemoglobin 12.4, hematocrit 37.8, platelets 358. Sodium 137, potassium 4, BUN 17, creatinine 0.7, glucose 106. ASSESSMENT AND PLAN: Ms. Lesa Umanzor, 42-year-old lady with past medical history of hypertension, asthma, lupus, uterine fibroids, history of HPV, fibromyalgia. Came with lower abdominal pain. Looks like there is a solid mass of the left hemipelvis, left adnexa, intractable pain, history of diverticulitis, lupus, hypertension, asthma. We are trying to get pain control. GI and OCCUPATIONAL THERAPIST'S ASSISTANT are on the case. Discussion done with Dr. Rinku Fagan, phone #[phone]. Length of time discussion done with Dr. Rinku Fagan. He will see the patient. Meanwhile, continue present treatment. Discussion done with the patient's . The patient went for CAT scan of the abdomen and pelvis. Pelvic and abdominal MRI ordered. We will follow up. Oralia Penaloza MD MTDAleshia
--- NOTE | 2018-03-04 12:39 | CP.PCM.PN ---
<Shashi Suazo - Last Filed: 03/04/18 12:40> Subjective - Date & Time of Evaluation Date of Evaluation: 03/04/18 Time of Evaluation: 12:37 - Subjective Subjective: No complaints except mild abdominal pain lingers. No n/v/diarrhea. She has some constipation but refusing laxatives at this time. She is reportedly being encinas sferred to [place] for further OBGYN management. Objective - Vital Signs/Intake and Output Vital Signs (last 24 hours): Temp Pulse Resp BP Pulse Ox 98.3 F 75 20 120/71 98 03/04/18 08:21 03/04/18 08:21 03/04/18 08:21 03/04/18 08:21 03/04/18 08:21 Intake and Output: 03/04/18 03/04/18 06:59 18:59 Intake Total 360 Balance 360 - Medications Medications: Current Medications Hydromorphone HCl (Dilaudid) 0.5 mg IVP Q6H PRN PRN Reason: Pain, moderate (4-7) Last Admin: 03/04/18 11:44 Dose: 0.5 mg Ondansetron HCl (Zofran Inj) 4 mg IVP Q6H PRN PRN Reason: Nausea/Vomiting Last Admin: 03/04/18 11:47 Dose: 4 mg Polyethylene Glycol (Miralax) 17 gm PO BID ERICA Last Admin: 03/04/18 10:03 Dose: Not Given - Labs Labs: 03/03/18 06:00 03/03/18 06:00 PT 11.8 SECONDS (9.4-12.5) 03/01/18 12:20 INR 1.03 03/01/18 12:20 APTT 31.2 Seconds (25.1-36.5) 03/01/18 12:20 - Constitutional Appears: Well, Non-toxic, No Acute Distress - Eye Exam Eye Exam: Normal appearance - ENT Exam ENT Exam: Mucous Membranes Moist - Respiratory Exam Respiratory Exam: NORMAL BREATHING PATTERN - Cardiovascular Exam Cardiovascular Exam: REGULAR RHYTHM - GI/Abdominal Exam GI & Abdominal Exam: Soft, Tenderness, Normal Bowel Sounds - Extremities Exam Extremities Exam: Normal Inspection - Neurological Exam Neurological Exam: Alert, Awake, Oriented x3 - Psychiatric Exam Psychiatric exam: Normal Affect, Normal Mood Assessment and Plan - Assessment and Plan (Free Text) Assessment: 42 year old female with past medical history of HTN, Asthma, Lupus, uterine fibroids, hx HPV, Fibromyalgia, who presented to [facility] ED complaining of lower abdominal pain. Patient underwent imaging showing solid mass of the left hemipelvis-left adnexa. Plan: Intractable abdominal pain Pelvic mass Hx of diverticulosis SLE HTN Asthma - Pelvic mass likely left hemipelvis-left adnexa - Pain control as per primary - Abdominal/Pelvis CT(03/01/18): Cystic pelvic mass likely adnexal in origin. Alternatively this could be related to the sigmoid colon and represent drainable collection/abscess. Pelvic ultrasound may assist in delineating the origin. Despite the fact that there is a history of hysterectomy, no history of oophorectomy provided - Transvaginal US(03/01/18): Complex primarily solid mass in the left hemipelvis-left adnexa. This does not appear to represent a complex cyst or abscess - Previous EGD and Colonoscopy 2017 reports reviewed and appreciated - Gynecology consulted, follow up recommendations - bowel regimen as needed - Reportedly being transferred to [place]. <Min Cordova V - Last Filed: 03/05/18 23:57> Objective - Vital Signs/Intake and Output Vital Signs (last 24 hours): Temp Pulse Resp BP Pulse Ox 98 F 82 16 120/78 93 L 03/04/18 14:50 03/04/18 14:50 03/04/18 14:50 03/04/18 14:50 03/04/18 14:50 - Labs Labs: 03/03/18 06:00 03/03/18 06:00 PT 11.8 SECONDS (9.4-12.5) 03/01/18 12:20 INR 1.03 03/01/18 12:20 APTT 31.2 Seconds (25.1-36.5) 03/01/18 12:20 Attending/Attestation - Attestation I have personally seen and examined this patient.: Yes I have fully participated in the care of the patient.: Yes I have reviewed all pertinent clinical information, including history, physical exam and plan: Yes Notes (Text): This is an addendum to GI progress report dictated by the GI Fellow.The patient was seen and examined earlier. Medical records, lab studies, imagings were reviewed. Last 24 hours events reviewed. Agreed with the above treatment plan as outlined in GI Fellow 's notes with the addition of the following Awaiting for the patient to transfer to [facility] Patient is due to have laparoscopic evaluation Previous GI workup was reviewed Findings discussed with patient 03/05/18 23:54
[2018-03-04 14:51] VITALS: BP 120/78; PULSE 82; RESP 16; TEMP 98; O2SAT 93
--- NOTE | 2018-03-05 11:17 | MRI ---
MRI abdomen without contrast. MRI pelvis without contrast. Indication: Abdominal pain Technique: Multiplanar, multi sequence magnetic resonance images of the abdomen and pelvis were obtained without and with the administration of intravenous gadolinium using a multi phase abdomen and pelvis protocol. A total of 712 images submitted for review of the abdomen. A total of 681 images were submitted for review of the pelvis. Comparison: CT abdomen pelvis with IV contrast performed 03/01/18 Findings: Small hiatal hernia. Limited views of the inferior thorax appear unremarkable. 4 mm too small to characterize T2 hepatic hyperintense focus; statistically likely cyst or hemangioma. Mild hepatomegaly. 11 mm and 7 mm right renal T2 hyperintense lesions, likely cysts however incompletely characterized on this noncontrast study. No hydronephrosis. The kidneys appear otherwise unremarkable. The gallbladder appears unremarkable. The noncontrast liver, spleen, pancreas, and adrenal glands appear otherwise unremarkable. No bulky adenopathy appreciated. The uterus is absent consistent with hysterectomy. Complex cystic pelvic mass measures approximately 4.0 x 4.3 cm to the left of midline, likely left adnexal region of unclear etiology. The right ovary is identified with 7 mm probable follicle. No pelvic free fluid. Possible Bartholin's gland cyst, incompletely imaged. Mildly thick-walled urinary bladder likely exaggerated by under distension. Impression: Hysterectomy. 4.0 x 4.3 cm complex cystic pelvic mass which appears to the left of midline, likely left adnexal origin. This finding is unclear etiology. Considerations include both benign and malignant etiologies. In conjunction with contrast enhanced CT of the abdomen and pelvis and transvaginal pelvic ultrasound both performed 03/01/18, this mass is highly worrisome for malignant neoplasm. Recommend gynecologic consultation and MRI of the pelvis with IV contrast may be considered for further characterization if indicated. Additional findings as above. Preliminary impression was provided by [employer].
--- NOTE | 2018-03-05 14:49 | DS ---
03/04/18 CHIEF COMPLAINT: Abdominal pain. HISTORY OF PRESENT ILLNESS: Ms. Lesa Umanzor is 42 years old female with past medical history of lupus, asthma, fibromyalgia, hypertension, diverticulitis with past surgical history of hysterectomy, came to the Emergency Department with suprapubic abdominal pain since Monday. The patient states that she came to the emergency room on Monday and was diagnosed with bladder infection and discharged home with antibiotics. The patient states she followed up with her PMD on Monday, who changed her medication. The patient reports worsening of symptoms since Monday associated with subjective fever and two episodes of diarrhea prompting her to come to the Emergency Department. The patient reported that she did her annual visit with the pin machine operator on Monday with no significant finding. The patient denies chills, nausea or vomiting and readmitted the patient. Did CAT scan of the abdomen and pelvis, transvaginal ultrasound. GI consult called with Dr. Cordova and ORTHOPEDICS NURSE visit Dr. Rinku Fagan. Abdomen MRI and pelvic MRI done, noted by me. The patient was given pain medication, but pain was not improving. Finally, Dr. Rinku Fagan saw the patient and he decided the patient has to be operated and he transferred the patient to [place]. We will continue treatment there. The patient's was sitting on the bed on Monday, he also knows about patient's condition. PAST MEDICAL HISTORY: Lupus, asthma, fibromyalgia, hypertension, diverticulitis, hysterectomy, pelvic pain, nausea and vomiting. ALLERGIES: THE PATIENT IS NOT ALLERGIC WITH ANY MEDICATIONS. HOME MEDICATIONS: Cipro, metoprolol, Bentyl, metronidazole, and tramadol. REVIEW OF SYSTEMS: The patient was seen and examined at the bedside. Still having pain, but no fever. No shortness of breath. No chest pain. No back pain. No headache or dizziness. PHYSICAL EXAMINATION: VITAL SIGNS: Temperature 98, pulse 82, blood pressure 120/78, respiratory rate 16. HEENT: Head normocephalic, atraumatic. Eyes PERRLA. Extraocular muscles intact. Conjunctivae clear. Nose patent. Mucous membranes moist. NECK: Supple. No carotid bruits. No JVD. No thyromegaly. CHEST: Bilaterally symmetrical. HEART: S1 and S2 positive. LUNGS: Clear to auscultation. ABDOMEN: Soft. Bowel sounds positive. No organomegaly. EXTREMITIES: No edema. No cyanosis. NEUROLOGICAL: The patient is awake and alert. Moving all 4 extremities. No focal deficits. LABORATORY DATA: White blood cells 7.3, hemoglobin noted , hematocrit 37.6, and platelets 368. Sodium 137, potassium 4.0, BUN 17, creatinine 0.7, hemoglobin A1c is 6.1, ASSESSMENT AND PLAN: Ms. Lesa Umanzor is 42 years old lady with hypercholesterolemia, hematuria, patient with history of hypertension, asthma, lupus, uterine fibroid, history of human papillomavirus, fibromyalgia, now has intractable abdominal pain, pelvic mass, history of diverticulitis. Pelvic mass looks like left hemipelvic, left adnexa. Getting pain management. Seen by Dr. Rinku Fagan, ORTHOPEDICS NURSE. Pelvic mass is 6.5 x 3.8 x 3.7 cm. Complex mass on ultrasound and CT. Origin of that mass is unclear. MRI done yesterday reports that mass appears to be ovarian. The patient reports history of diverticulitis with multiple coloscopies, history of hysterectomy done in 2015. The patient does have a report of chronic constipation with last bowel movement [address] Rinku Fagan talked to the patient and the patient's . Choices are given about management, discharge home and followup with her ORTHOPEDICS NURSE doctor for diagnostic laparoscopy and removal of the pelvic mass. After discussion of the options and reviewing of her symptoms, recommended diagnostic laparoscopy and evaluation, possible removal of the pelvic mass. The patient agrees with this plan including her and then the patient was transferred to [facility] for surgery due to full ORTHOPEDICS NURSE coverage with available surgical assistance and supportive care as per Dr. Rniku Fagan. Discussion done with nursing staff also and with the by myself and Dr. Fagan will follow up with this patient over there. After discharge, she will come back in my office. Oralia Penaloza MD MTDA[facility]
== END 2018-03-04 19:21 | disposition short-term general hospital (02) | DRG 392 ==
LOC: ED 11:44 → ERH 15:46 → 5RNO 17:35 → OBSVTOIN 03-02 22:09
PROVIDERS: ADMIT Internal Medicine; ATTEND Internal Medicine
DX: R19.00 Intra-abdominal and pelvic swelling, mass and lump, unspecified site (principal); M32.9 Systemic lupus erythematosus, unspecified; R10.2 Pelvic and perineal pain; I10 Essential (primary) hypertension; K21.9 Gastro-esophageal reflux disease without esophagitis; N30.91 Cystitis, unspecified with hematuria; M79.7 Fibromyalgia; E78.00 Pure hypercholesterolemia, unspecified; J45.909 Unspecified asthma, uncomplicated; K59.09 Other constipation; K57.90 Diverticulosis of intestine, part unspecified, without perforation or abscess without bleeding; K64.4 Residual hemorrhoidal skin tags; K64.8 Other hemorrhoids; Z87.440 Personal history of urinary (tract) infections